=== PATIENT | male | born 1950 | race African-American/Black ===

== ENCOUNTER 2016-08-23 08:04 | Outpatient (CLI) ==
[2014-11-10 17:00] VITALS: BMI 27.2
--- NOTE | 2016-08-23 08:41 | DI ---
EXAM: Four views of the right knee. History: Right knee pain and swelling. Findings: No acute fracture or dislocation. Moderate to severe narrowing of the medial compartment and moderate narrowing of the lateral and patellofemoral compartments. There is subchondral sclero sis and osteophyte formation. Impression: No acute osseous abnormality. Moderate to severe osteoarthritis.
[2016-08-23 08:55] LABS: BASOPHILS # (AUTO) 0.1 K/uL (0-0.2); BASOPHILS % (AUTO) 0.9 % (0.0-3.0); EOSINOPHILS # (AUTO) 0.2 K/ul (0.0-0.7); EOSINOPHILS % (AUTO) 3.4 % (0.0-7.0); HEMATOCRIT 39.6 % (42.0-52.0); LYMPHOCYTES # (AUTO) 1.7 K/uL (0.60-3.4); LYMPHOCYTES % (AUTO) 29.7 (10.0-50.0); MEAN CORPUSCULAR HGB CONC 32.8 (31.8-35.4); MEAN CORPUSCULAR VOLUME 88.2 fl (80.0-94.0); MONOCYTES # (AUTO) 0.6 K/uL (0.4-2.0); MONOCYTES % (AUTO) 9.8 (0-10); NEUTROPHILS # (AUTO) 3.1 K/ul (2.0-6.9); NEUTROPHILS % (AUTO) 56.2; PLATELET COUNT 169 10^3/uL (140-440); RED BLOOD COUNT 4.49 10^6/ul (4.70-6.10); WHITE BLOOD COUNT 5.59 K/ul (4.2-10.2)
[2016-08-23 09:17] LABS: ALBUMIN 3.8 g/dL (3.4-5.0); ALBUMIN/GLOBULIN RATIO 0.97; ANION GAP 11.1; BILIRUBIN,TOTAL 0.77 mg/dL (0.00-1.20); BUN/CREATININE RATIO 11.81; CALCIUM 9.3 mg/dL (8.2-10.2); CHOL/HDL RATIO 2.3 (4.5-6.4); CREATININE 1.27 mg/dL (0.60-1.10); POTASSIUM 4.1 mmol/L (3.5-5.1); TOTAL PROTEIN 7.7 g/dL (5.8-8.1)
[2016-08-24 08:39] LABS: RHEUMATOID ARTHRITIS FACTOR 13.1 IU/mL (0.0-13.9)
[2016-08-25 09:49] LABS: C-REACTIVE PROTEIN 2.8 mg/L (0.0-4.9)
== END 2016-08-23 08:05 | disposition home or self-care (01) ==
LOC: LAB 08:04
PROVIDERS: ATTEND Family Medicine
DX: I11.9 Hypertensive heart disease without heart failure (principal); R60.0 Localized edema; M25.561 Pain in right knee; M25.461 Effusion, right knee; M06.9 Rheumatoid arthritis, unspecified; Z79.899 Other long term (current) drug therapy
CPT/HCPCS: 36415; 80053; 80061; 85025; 86140; 86430

== ENCOUNTER 2017-02-19 08:46 | Outpatient (CLI) | payer OTHER ==
[2014-11-10 17:00] VITALS: BMI 27.2
[2017-02-19 09:13] LABS: BASOPHILS % (AUTO) 0.5 % (0.0-3.0); EOSINOPHILS # (AUTO) 0.2 K/ul (0.0-0.7); EOSINOPHILS % (AUTO) 3.2 % (0.0-7.0); HEMATOCRIT 38.2 % (42.0-52.0); HEMOGLOBIN 12.7 g/dl (14.0-18.0); IMMATURE GRANULOCYTE % (AUTO) 0.3 % (0.0-5.0); LYMPHOCYTES # (AUTO) 1.4 K/uL (0.60-3.4); LYMPHOCYTES % (AUTO) 23.1 (10.0-50.0); MEAN CORPUSCULAR HEMOGLOBIN 29.3 pg (27.0-31.0); MEAN CORPUSCULAR HGB CONC 33.2 (31.8-35.4); MEAN CORPUSCULAR VOLUME 88.2 fl (80.0-94.0); MONOCYTES # (AUTO) 0.6 K/uL (0.4-2.0); MONOCYTES % (AUTO) 9.5 (0-10); NEUTROPHILS # (AUTO) 3.8 K/ul (2.0-6.9); NEUTROPHILS % (AUTO) 63.4; PLATELET COUNT 157 10^3/uL (140-440); RED BLOOD COUNT 4.33 10^6/ul (4.70-6.10); WHITE BLOOD COUNT 6.03 K/ul (4.2-10.2)
[2017-02-19 09:16] LABS: BILIRUBIN,URINE Negative (NEGATIVE); KETONES,URINE Negative (NEGATIVE); LEUKOCYTE ESTERASE ,URINE Negative (NEGATIVE); NITRITE,URINE Negative (NEGATIVE); PROTEIN,URINE Trace (NEGATIVE); URINE, BLOOD Negative (NEGATIVE)
[2017-02-19 09:17] LABS: ADD URINE MICROSCOPIC YES
[2017-02-19 09:29] LABS: ALBUMIN 3.4 g/dL (3.4-5.0); ALBUMIN/GLOBULIN RATIO 0.83; ANION GAP 12.1; BILIRUBIN,TOTAL 0.79 mg/dL (0.00-1.20); BUN/CREATININE RATIO 8.41; CALCIUM 9.6 mg/dL (8.2-10.2); CHOL/HDL RATIO 2.5 (4.5-6.4); CREATININE 1.07 mg/dL (0.60-1.10); POTASSIUM 4.1 mmol/L (3.5-5.1); TOTAL PROTEIN 7.5 g/dL (5.8-8.1)
== END 2017-02-19 08:47 | disposition home or self-care (01) ==
LOC: LAB 08:46
PROVIDERS: ATTEND Family Medicine
DX: E78.5 Hyperlipidemia, unspecified (principal); I11.9 Hypertensive heart disease without heart failure; E66.9 Obesity, unspecified; F10.21 Alcohol dependence, in remission
CPT/HCPCS: 36415; 80053; 80061; 81001; 85025

== ENCOUNTER 2018-04-18 14:06 | Outpatient (CLI) | payer OTHER ==
[2014-11-10 17:00] VITALS: BMI 27.2
== END 2018-04-18 14:18 | disposition short-term general hospital (02) ==
LOC: AMBL 14:06
PROVIDERS: ATTEND Internal Medicine Geriatric Medicine
DX: M25.551 Pain in right hip (principal); R26.2 Difficulty in walking, not elsewhere classified; R68.89 Other general symptoms and signs

== ENCOUNTER 2018-04-26 16:47 | Emergency (ER) | payer OTHER ==
[2018-04-26 16:56] VITALS: BP 121/70; TEMP 99; BMI 39.6
--- NOTE | 2018-04-26 17:35 | CT ---
EXAM: CT abdomen and pelvis without contrast HISTORY: Abdominal pain and constipation TECHNIQUE: Multi-slice transaxial helical with coronal and sagittal reformed images COMPARISON: CT abdomen/pelvis from 02/19/2013 FINDINGS: The heart is mildly enlarged. There is subendocardial fat deposition within the nova of t he left ventricle reflecting previous ischemia. No pericardial or pleural effusions are appreciated. Calcified granulomas are noted in the left lower lobe. The hepatic attenuation is normal relative to the spleen. The gallbladder contains radiodense debris but is nondilated. The pancreas and adrenal glands are normal. The spleen has normal size and atte nuation. A calculus at the interpolar region of the right kidney 6.3 mm. The kidneys are otherwise grossly normal. Ureters have normal caliber. The femoral veins, iliac veins, and inferior vena cava are distended with surrounding fat stranding. Inferior vena cava filter is in place. The aorta has normal caliber. There is fat stranding within the retroperitoneum which is most pronounced in the p nam. The intestines have normal caliber without evidence of obstruction or acute inflammation. No lymphadenopathy or ascites appreciated. The bones are free of suspicious osteolytic or osteoblastic lesions. IMPRESSION: 1. Suggestion of thrombophlebitis of the femoral veins, iliac veins, and inferior vena cava. Inferi or vena cava filter in place. 2. Nonobstructive intestinal gas pattern. 3. Retroperitoneal edema is likely related to impression #1. 4. Suggestion of cholelithiasis without dilatation.
[2018-04-26] MEDS ORDERED: MORPHINE 4 MG/ML SYRINGE IM STA (18:12)
[2018-04-26] MEDS ORDERED: ZOFRAN 4 MG/2 ML IM STA (18:13)
--- NOTE | 2018-04-26 18:16 | ED.PDOC ---
General ED Provider: Dr. AUDI ORTIZ-ER Chief Complaint: Abdominal Pain Stated Complaint: im hurting Time Seen by Physician: 16:55 Mode of Arrival: Wheelchair Information Source: Patient Exam Limitations: No limitations Nursing and Triage Documentation Reviewed and Agree: Yes Does patient meet sepsis criteria?: No System Inflammatory Response Syndrome: Not Applicable Sepsis Protocol: For patient's 13 years and over: Temp is 96.8 and below OR 101 and greater Pulse >90 BPM Resp >20/minute Acutely Altered Mental Status Are patient's symptoms suggestive of a new infection, such as: -Pneumonia -Skin, Soft Tissue -Endocarditis -UTI -Bone, Joint Infection -Implantable Device -Acute Abdominal Infection -Wound Infection -Meningitis -Blood Stream Catheter Infection -Unknown GI Complaint Exam - Abdominal Pain Complaint/Exam Onset: Gradual Duration: 1-2 days Symptoms Are: Still present Timing: Constant Initial Severity: Mild Current Severity: Moderate Location of Pain: Diffuse Character: Reports: Dull, Aching Aggravating: Reports: None Associated Signs and Symptoms: Reports: Nausea Related History: Reports: Similar episode Surgical Obstruction Risk Factors: Reports: None Abdominal Findings: Present: None Differential Diagnoses: Appendicitis, Constipation, Diverticulitis, Pancreatitis Quality Indicator For Non-Traumatic Chest Pain/Syncope: EKG Performed Review of Systems - Review Of Systems Constitutional: Reports: No symptoms Eyes: Reports: No symptoms Ears, Nose, Mouth, Throat: Reports: No symptoms Respiratory: Reports: No symptoms Cardiac: Reports: No symptoms GI: Reports: Abdominal pain, Nausea : Reports: No symptoms Musculoskeletal: Reports: No symptoms Skin: Reports: No symptoms Neurological: Reports: No symptoms Endocrine: Reports: No symptoms Hematologic/Lymphatic: Reports: No symptoms All Other Systems: Reviewed and Negative Past Medical History - Past Medical History Previously Healthy: No Endocrine: Reports: Unknown Cardiovascular: Reports: Unknown Respiratory: Reports: Unknown Hematological: Reports: Unknown Gastrointestinal: Reports: Unknown Genitourinary: Reports: Unknown Neuro/Psych: Reports: Unknown Musculoskeletal: Reports: Unknown Cancer: Reports: Unknown - Surgical History General Surgical History: Reports: Unknown - Family History Family History: Reports: Unknown - Social History Smoking Status: Never smoker Hx Substance Use: No Alcohol Screening: Heavy Physical Exam - Physical Exam Appearance: Well-appearing, No pain distress, Well-nourished Pain Distress: Moderate Eyes: GLENDA, EOMI, Conjunctiva clear ENT: Ears normal, Nose normal, Oropharynx normal Neck: Supple Respiratory: Airway patent Cardiovascular: RRR GI/: Soft Musculoskeletal: Normal strength, ROM intact, No edema, No calf tenderness Skin: Warm, Dry, Normal color Neurological: Sensation intact, Motor intact, Reflexes intact, Cranial nerves intact, Alert, Oriented Psychiatric: Affect appropriate, Mood appropriate Interpretation - Radiology Interpretation Radiology Interpretation By: Radiologist Radiology Results: Positive Exam Interpreted: CT Scan ("cholelithiasis ?thrombophlebitis veins--IFV filter in place") - EKG Interpretation Time of EKG #1: 18:17 Rate: Normal Rhythm: Sinus Ectopy: None [place]: NL ST Segment: Normal Interpretation: nsr Physician Notification - Case Discussed Physician Notified: dr reynolds Time of Notification: 19:00 Critical Care Note - Critical Care Note Total Time (mins): 0 Course - Course Hematology/Chemistry: 04/26/18 17:18 04/26/18 17:18 Orders, Labs, Meds: Lab Review 04/26/18 04/26/18 17:18 17:18 WBC 9.00 RBC 3.86 L Hgb 11.1 L Hct 34.1 L MCV 88.3 MCH 28.8 MCHC 32.6 RDW Coeff of Mamadou 14.6 Plt Count 125 L Immature Gran % (Auto) 0.2 Neut % (Auto) 74.0 Lymph % (Auto) 14.3 [place] % (Auto) 9.8 Eos % (Auto) 1.3 Baso % (Auto) 0.4 Immature Gran # (Auto) 0.0 Neut # (Auto) 6.7 Lymph # (Auto) 1.3 [place] # (Auto) 0.9 Eos # (Auto) 0.1 Baso # (Auto) 0.0 ESR 25 H Sodium 142.0 Potassium 3.90 Chloride 105.0 Carbon Dioxide 26.0 Anion Gap 14.90 BUN 26.0 H Creatinine 1.90 H Estimated GFR (MDRD) 43.00 BUN/Creatinine Ratio 13.68 Glucose 120.0 H Calcium 9.70 Total Bilirubin 3.00 H AST 51.0 ALT 37.1 Alkaline Phosphatase 74.0 Total Creatine Kinase 71.8 Troponin I < 0.010 Total Protein 8.40 H Albumin 4.30 Globulin 4.10 Albumin/Globulin Ratio 1.04 Amylase 82.3 Lipase 207.2 Orders Category Date Time Status EKG-(ED ONLY) Stat CARDIO 04/26/18 16:52 Completed AMYLASE Stat LAB 04/26/18 17:18 Completed CBC W/ AUTO DIFF Stat LAB 04/26/18 17:18 Completed COMPREHENSIVE METABOLIC PANEL Stat LAB 04/26/18 17:18 Completed CREATINE KINASE Stat LAB 04/26/18 17:18 Completed ESR Stat LAB 04/26/18 17:18 Completed LIPASE Stat LAB 04/26/18 17:18 Completed TROPONIN I Stat LAB 04/26/18 17:18 Completed Morphine Sulfate [Morphine 4 mg/ml Syringe] MEDS 04/26/18 18:12 Discontinued 4 mg IM ONCE STA Ondansetron HCl/Pf [Zofran 4 mg/2 ml] MEDS 04/26/18 18:13 Discontinued 4 mg IM ONCE STA CT ABDOMEN/PELVIS WO CONTRAST Stat RADS 04/26/18 17:05 Completed Medications Discontinued Medications Generic Name Dose Route Start Last Admin Trade Name Freq PRN Reason Stop Dose Admin Morphine Sulfate 4 mg 04/26/18 18:12 04/26/18 18:24 Morphine 4 Mg/Ml Syringe IM 04/26/18 18:13 4 mg ONCE STA Administration Ondansetron HCl 4 mg 04/26/18 18:13 04/26/18 18:24 Zofran 4 Mg/2 Ml IM 04/26/18 18:14 4 mg ONCE STA Administration mr christine walked out of the room several times during the ed visit---the ed staff stated he left the hospital ed without saying why Vital Signs: Temp Pulse Resp BP Pulse Ox 04/26/18 16:48 99.0 F 100 H 20 121/70 99 Departure - Departure Time of Disposition: 18:41 Disposition: AMA Discharge Problem: Abdominal pain Condition: Fair Pt referred to PMD for follow-up: No IPMP verified?: No Allergies/Adverse Reactions: Allergies No Known Allergies Allergy (Verified 04/28/18 12:45) Home Medications: Ambulatory Orders Ranitidine HCl [Zantac] 150 mg PO DAILY 02/19/13 Metoprolol Succinate [Toprol Xl] 50 mg PO DAILY tab.er.24h 04/29/18 Disposition Discussed With: Patient
== END 2018-04-26 18:43 | disposition left against medical advice (07) ==
LOC: ED 16:47
DX: R10.9 Unspecified abdominal pain (principal)
CPT/HCPCS: 36415; 80053; 82150; 82550; 83690; 84484; 85025; 85651; 93005; 93010; 96372; 99284

== ENCOUNTER 2018-04-28 12:42 | Inpatient (IN) | payer OTHER ==
[2018-04-28 12:45] VITALS: BMI 33.0
--- NOTE | 2018-04-28 13:44 | ED.PDOC ---
General ED Provider: Dr. AUDI JUNIOR Chief Complaint: Extremity Pain/Injury Stated Complaint: 67 y/o Afr Indian male with CC Feet and Legs Swelling. Hx previous Heart problems but unsure of CHF. Now most recently noted increased swelling Bilat Lower Extremities. [ End ] Time Seen by Physician: 13:50 Mode of Arrival: Wheelchair Information Source: Patient Exam Limitations: No limitations Nursing and Triage Documentation Reviewed and Agree: Yes Does patient meet sepsis criteria?: No System Inflammatory Response Syndrome: Not Applicable Sepsis Protocol: For patient's 13 years and over: Temp is 96.8 and below OR 101 and greater Pulse >90 BPM Resp >20/minute Acutely Altered Mental Status Are patient's symptoms suggestive of a new infection, such as: -Pneumonia -Skin, Soft Tissue -Endocarditis -UTI -Bone, Joint Infection -Implantable Device -Acute Abdominal Infection -Wound Infection -Meningitis -Blood Stream Catheter Infection -Unknown Musculoskeletal Complaint Exam - Lower Extremity Complaint/Exam Location of Pain: Reports: Right, Left, Ankle, Leg Mechanism of Injury: Reports: No known trauma Onset/Duration: progressing over several weeks, worse this morning Symptoms Are: Still present Onset of Pain: Denies: Immediate Initial Severity: Mild Current Severity: Moderate Location: Reports: Diffuse Character: Reports: Aching Alleviating: Reports: None Aggravating: Reports: None Able to Bear Weight: Yes Associated Signs and Symptoms: Reports: Swelling Related History: Reports: Similar episode DVT Risk Factors: Reports: None Septic Arthritis Risk Factors: Reports: None Related Surgical History: Reports: None Lower Extremity Findings: Present: Swelling. Absent: Erythema, Other joint pain , Foreign body Debo's Sign Present: No Differential Diagnoses: Other (Leg edema -peripheral vascular insufficiency) Review of Systems - Review Of Systems Constitutional: Reports: No symptoms Eyes: Reports: No symptoms Ears, Nose, Mouth, Throat: Reports: No symptoms Respiratory: Reports: No symptoms Cardiac: Reports: Edema GI: Reports: No symptoms : Reports: No symptoms Musculoskeletal: Reports: No symptoms Skin: Reports: No symptoms Neurological: Reports: No symptoms Endocrine: Reports: No symptoms Hematologic/Lymphatic: Reports: No symptoms All Other Systems: Reviewed and Negative Past Medical History - Past Medical History Previously Healthy: No Endocrine: Reports: Unknown Cardiovascular: Reports: Unknown Respiratory: Reports: Unknown Hematological: Reports: Unknown Gastrointestinal: Reports: Unknown Genitourinary: Reports: Unknown Neuro/Psych: Reports: Unknown Musculoskeletal: Reports: Unknown Cancer: Reports: Unknown - Surgical History General Surgical History: Reports: Unknown - Family History Family History: Reports: Unknown - Social History Smoking Status: Never smoker Hx Substance Use: No Alcohol Screening: Heavy Physical Exam - Physical Exam Appearance: Well-appearing, No pain distress, Well-nourished, Obese Ill-appearing: None Pain Distress: None Eyes: GLENDA, EOMI, Conjunctiva clear ENT: Ears normal, Nose normal, Oropharynx normal Neck: Supple Respiratory: Airway patent, Breath sounds clear, Breath sounds equal, Respirations nonlabored Cardiovascular: RRR, Pulses normal (Bilat lower extremities edema 2 +), No rub, No murmur GI/: Soft, Nontender, No masses, Bowel sounds normal, No Organomegaly Musculoskeletal: Normal strength, ROM intact, No edema, No calf tenderness Skin: Warm, Dry, Normal color Neurological: Sensation intact, Motor intact, Reflexes intact, Cranial nerves intact, Alert, Oriented Physician Notification - Case Discussed Physician Notified: Dr Samano Time of Notification: 18:00 Physician Notified: Dr Sinha Time of Notification: 18:20 (Discussed/admit patient 23 hr) Critical Care Note - Critical Care Note Total Time (mins): 60 Course - Course Hematology/Chemistry: 04/28/18 14:15 04/28/18 14:15 Orders, Labs, Meds: Lab Review 04/28/18 04/28/18 04/28/18 14:15 14:15 14:15 WBC 11.03 H RBC 3.68 L Hgb 10.8 L Hct 32.6 L MCV 88.6 MCH 29.3 MCHC 33.1 RDW Coeff of Mamadou 14.5 Plt Count 122 L Immature Gran % (Auto) 0.5 Neut % (Auto) 85.8 Lymph % (Auto) 5.2 L [place] % (Auto) 8.0 Eos % (Auto) 0.4 Baso % (Auto) 0.1 Immature Gran # (Auto) 0.1 Neut # (Auto) 9.5 H Lymph # (Auto) 0.6 [place] # (Auto) 0.9 Eos # (Auto) 0.0 Baso # (Auto) 0.0 Sodium 135.7 L Potassium 4.86 Chloride 100.9 Carbon Dioxide 27.9 Anion Gap 11.76 BUN 33.1 H Creatinine 2.90 H D Estimated GFR (MDRD) 27.00 BUN/Creatinine Ratio 11.41 Glucose 140.4 H Calcium 9.73 Total Bilirubin 3.11 H AST 42.6 ALT 32.8 Alkaline Phosphatase 95.2 Troponin I 0.057 NT-Pro-B Natriuret Pep 179.000 H Total Protein 8.69 H Albumin 4.52 Globulin 4.17 Albumin/Globulin Ratio 1.08 Lipase 146.5 Orders Category Date Time Status EKG-(ED ONLY) Stat CARDIO 04/28/18 14:05 Completed CBC W/ AUTO DIFF Stat LAB 04/28/18 14:15 Completed CMP [COMPREHENSIVE METABOLIC PANEL] Stat LAB 04/28/18 14:15 Completed LIPASE Stat LAB 04/28/18 14:15 Completed NT-PROBNP Stat LAB 04/28/18 14:15 Completed TROPONIN I Stat LAB 04/28/18 14:15 Completed UA [URINALYSIS C & S IF INDICATED] Stat LAB 04/28/18 18:16 Uncollected URINE DRUG SCREEN (RAPID FOR ED) [DRUG SCREEN, URINE, LAB 04/28/18 18:16 Uncollected RAPID] Stat CHEST, 2 VIEWS PA & LAT Stat RADS 04/28/18 14:[address] ABDOMEN/PELVIS WO CONTRAST Stat RADS 04/28/18 18:17 Completed Medications Generic Name Dose Route Start Last Admin Trade Name Freq PRN Reason Stop Dose Admin Acetaminophen 650 mg 04/28/18 19:24 Tylenol PO Q4H PRN Pain Enoxaparin Sodium 40 mg 04/29/18 09:00 Lovenox SUBCUT DAILY RADHA Sodium Chloride 1,000 mls @ 80 mls/hr 04/28/18 19:30 Sodium Chloride IV DAILY RADHA Sodium Chloride 1 syr 04/28/18 19:18 04/28/18 19:25 Saline Flush IVF 1 syr PRN PRN Administration To flush IV Discontinued Medications Generic Name Dose Route Start Last Admin Trade Name Freq PRN Reason Stop Dose Admin Enoxaparin Sodium 40 mg 04/28/18 19:17 04/28/18 19:23 Lovenox SUBCUT 04/28/18 19:18 40 mg ONCE STA Administration Vital Signs: Temp Pulse Resp BP Pulse Ox 04/28/18 12:42 97.7 F 94 H 20 146/66 H 96 Departure - Departure Time of Disposition: 19:30 Disposition: ADMITTED INPATIENT Discharge Problem: Peripheral vascular insufficiency, Prerenal renal failure, CKD (chronic kidney disease), Cholelithiasis, Leg edema Condition: Good Pt referred to PMD for follow-up: Yes (post discharge) IPMP verified?: No Allergies/Adverse Reactions: Allergies No Known Allergies Allergy (Verified 04/28/18 12:45) Home Medications: Ambulatory Orders Metoprolol Succinate [Toprol Xl] 25 mg PO BID 02/19/13 Ranitidine HCl [Zantac] 150 mg PO DAILY 02/19/13 Disposition Discussed With: Patient Cardiovascular Complaint Exam - Palpitations Complaint/Exam Symptoms Are: Still present Timing: Constant Initial Severity: Moderate Current Severity: Moderate Character: Denies: Slow, Fast Alleviating: Reports: None Associated Signs and Symptoms: Reports: Lightheadedness. Denies: Dizziness, Syncope, Chest pain, Shortness of breath, Diaphoresis, Nausea, Vomiting Cardiac Risk Factors: Reports: Hypertension Pulmonary Embolism Risk Factors: Reports: None Atrial Fibrillation Risk Factors: Reports: Hypertension Differential Diagnoses: CAD, Paroxysmal SVT, Other (sinus tach)
--- NOTE | 2018-04-28 14:41 | DI ---
EXAM: PA and lateral views of the chest HISTORY: Short of breath COMPARISON: Chest Xray from 11/10/2014 FINDINGS: Lungs are clear with no lobar consolidation, failure, large effusion or significant atelec tasis. There is old granulomatous disease. Cardiac and mediastinal silhouettes show no acute abnormal ity. No acute osseous or soft tissue abnormalities. IMPRESSION: No active disease.
--- NOTE | 2018-04-28 18:57 | CT ---
EXAM: CT of the abdomen and pelvis without contrast. HISTORY: Abdominal discomfort/elevated bilirubin. PROCEDURE: Contiguous axial CT images of the abdomen and pelvis without contrast with coronal and sa gittal reformats. FINDINGS: Comparison made with CT of 04/26/2018. The exam is limited without IV contrast. The liver is normal in appearance. There is sludge and/or gallstones in the gallbladder. The gallbladder is w ithin normal limits in size. The gallbladder wall is not well visualized by CT. The pancreas, splee n, adrenal glands and left kidney are normal in appearance. There is a 4 mm nonobstructive calcificat ion in the right kidney. The abdominal aorta is within normal limits in diameter. There is a filter i n the inferior vena cava. The bilateral common femoral veins, iliac veins and inferior vena cava dis reddy to the IVC filter are enlarged and there is stable inflammatory stranding and edema in the pelvis , suspicious for thrombophlebitis. The appendix is not visualized. The visualized loops of bowel are normal in appearance. No free fluid or free air in the abdomen or pelvis. The bladder is adequately filled with no abnormality identified. The seminal vesicles and prostate gland are unremarkable. There are degenerative changes in the spine. Impression: Gallbladder sludge and/or cholelithiasis as described. Recommend ultrasound for further evaluation if clinically indicated. Enlarged bilateral femoral veins, iliac veins and inferior vena cava as described with stable inflamm atory stranding and edema in the pelvis, suspicious for thrombophlebitis. IVC filter as described. Nonobstructive right nephrolithiasis as described.
[2018-04-28] MEDS ORDERED: LOVENOX SUBCUT STA (19:17)
[2018-04-28] MEDS ORDERED: TYLENOL PO PRN (19:24)
[2018-04-28] MEDS ORDERED: SODIUM CHLORIDE 1,000 ML IV SCH (19:30)
--- NOTE | 2018-04-28 20:55 | PCM ---
- Chief Complaint Chief Complaint: Fluid in Legs, LLQ abd pain - History of Present Illness History of Present Illness: 67 yo AAM poor historian seen today in ER for leg swelling, he feels is worse today than previously. He noteds pain in the LLQ was what brought him into ER tonight. Reviewed ER note from Dr. Kate 04/26/18. Came in for abd pain, 1655 came in by . he did not meet SIRS criteria. Abd pain gradual onset duration 1-2 days. Mild symptoms initially increased to moderate, then diffuse pain. Dullness, nausea. EKG performed in ER adn they thought appendicitis, constipation, diverticulitis, pancreatitis. ROS reviewed and abd pain/nausea. PMH listed as unknown. fam/surg/social unknown. Exam listed as negative. CT scan cholelithiasis, ?thrombophlebitus IVC filter in place. EKG NSR. WBC 9.9, Hgb 11.1, plt 125, sodium 142, K+ 3.9, cl 105Cr 1.90, glucose 120.0. ESR 25. Glucose was 120. Total bili 3.0. AST 51.Vitals 99, puls 100, rr 20, bp 121/70 , o2 99%. On toprol XL and zantac. CT reviewed thrombophlebitis of femoral veins, iliac veins and inferior vena cava. IVC filter in place, nonobs gas pattern, retroperitoneal edema likely related to phlebitis, cholelith w/o dilatation. He had no c/o RUQ pain, all of his pain was LLQ. Notes reviewed and d/c from ER without issues. Weight noted 276 Labs listed as above. Nursing note reviewed and ?constipation with no BM x 3 days. He was d/c home and returned to ER again today. He lives alone, he is a very poor historian, difficulty obtaining history. Myself and nursing x 2 attempted to obtain history and he could not provide a sequential story. Pain comes and goes , leg pain is worse, edema is worse, but weight is unchanged. He has no SOA, talks in full sentences. Uout good per his report, BM 30 minutes ago. I asked about intake. Eating less drinking more soda. NO appetite. No c/o urinary issues. He then said he has not had much liquids either as he has not felt like drinking. He is supposed to see Dr. Haddad. He has not taken any of his medications since february. He does not know why. Poor social situation, no rides, no ability to get from place to place. He has no history of Heart failure, he has no history of major CKD. Fam hx heart disease. He has never been a smoker. Intermittent constipation w/ last BM 30 minutes ago. He has no PND, no orthopnea, no SOA, no AVENDANO. No HJR. We laid him flat and he was asymptomatic for about 5 minutes. No crackles, no heart murmur. no fluid wave in abdomen. Chronic venous stasis, ashyness to bilateral LE. O2 sat 100% while lying supine w/o oxygen. BP was 119/73 Accucheck on floor was 109. He noted he did not like lying flat after telling me multiple times that he was able to lie supine without issues. He had no isssues breathing but reported it made his head feel funnty. He never dropped below 98% off O2. We sat him up to 45, repeated neck vein evaluation and no jvd obviously on exam. BP increased 125/ 76. Bp standing 118/70. He was aware of day/date/time/year. He was aware of city/state/hospital/[place]/[facility]. Aware of current president, Jarod solorzano marshal finn. We wrapped legs in declan wraps. DNR status reviewed and he is full code. He came in to ER today w/ CC of feet/leg swelling. Previous HTN told ER ?CHF but then noted no history of US of heart and no known heart failure. Bilateral LE edema, chronic PVD/Venous stasis. Aching, moderate pain, rates this at 5/10 , uncomfortable. He noted it came on immediately. We asked him on floor if he sat a lot and he said yes. No erythema, no joint pain. ROS reviewed from ER team, no other symptoms. Well appearing, no distress, no resp issues, vitals look okay. Airway open, 2+ edema bilaterally without murmur/cardiac symptoms JVD/HJR. Labs now WBC 11.03, up from 9.9, hgb 10.8 now was 11.1 2 days ago, plt 122 now down from 125. Sodium 135.7 down from 142, glucose up to 140, Creatinine up to 2.90 from 2.40. PRO BNP, 179 (normal <124). Lipase 146.5. I was called at 19:46 pm (ER note said 18:20). CT w/o contrast today showed essentially same findings as seen 2 days ago. Urine drug screen is being ordered. I had them collect a new weight as ER today showed ~40 lb weight loss compared to last OV. CT today GB sludge cholelith as described. Recommended US (CAN BE DONE OP). Bilateral femoral veins, iliac and inferior vena cava stable inflammatory stranding suspect thrombophlebitis. Calculated his ideal body weight to be somewhere between 155-165 based on 70 inches tall man. - Review of Systems Constitutional: weakness, fatigue, loss of appetite. No: fever, chills, sweats , other Eyes: No: blurred vision, double-vision, discharge, itching, pain, redness, photophobia, other Ears: No: pain, bleeding, drainage, ringing, hearing loss, other Nose: No: bleeding, congestion, discharge, other Throat: No: pain, swelling, voice change, other Mouth: No: bleeding, pain, swelling, other Respiratory: No: cough, shortness of air, wheeze, hemoptysis, pain with breathing Cardiovascular: No: chest pain, left arm pain, diaphoresis, PND, orthopnea, edema, palpitations, syncope Gastrointestinal: abdominal pain (LLQ), nausea. No: vomiting, diarrhea, melena , hematemesis, hematochezia, dysphagia, constipation Genitourinary: No: dysuria, hematuria, frequency, incontinence, flank pain, penile discharge, testicular pain, testicular swelling Neurological: dizziness (intermittent). No: headache, seizure, numbness, weakness, speech difficulty, problems with walking, tremor, fainting Musculoskeletal: pain (bilateral LE). No: swelling in joints, other Skin: No: rash, pruritus, lacerations, wounds, bruising Immunology: No: hives, itching, frequent infections, difficulty healing Hematology: No: easy bruising, easy bleeding, swollen glands Endocrine: No: weight changes, cold intolerance, heat intolerance, excessive thirst, excessive hunger, polyuria Habits: No: tobacco use, substance use, alcohol use, other - Past Medical History Past Medical History: Denies history of heart failure, No history of DM, History of HTN, obesity, PVD, never smoker. Chronic peripheral edema, Knee pain, he has had DVT numerous in past, IVC filter in place. - Past Surgical History Past Surgical History: IVC filter, knee surgery on left to replace joint. - Allergies Allergies/Adverse Reactions: Allergies Allergy/AdvReac Type Severity Reaction Status Date / Time No Known Allergies Allergy Verified 04/28/18 12:45 - Medications Medications: Medications Generic Name Dose Route Start Last Admin Trade Name Freq PRN Reason Stop Dose Admin Acetaminophen 650 mg 04/28/18 19:24 Tylenol PO Q4H PRN Pain Enoxaparin Sodium 40 mg 04/29/18 09:00 Lovenox SUBCUT DAILY RADHA Sodium Chloride 1,000 mls @ 80 mls/hr 04/28/18 19:30 Sodium Chloride IV DAILY RADHA Sodium Chloride 1 syr 04/28/18 19:18 04/28/18 19:25 Saline Flush IVF 1 syr PRN PRN Administration To flush IV - Family History Past Family History: Mother: HTN. Father: Age related. Sister x1: HTN, obesity. Brother x3: HTN, obesity, asthma in [place] brother. No children. - Social History Past Social History: Lives alone. Non smoker. Former ETOH user, stopped 5 months ago. No drug use. - Vital Signs Temperature: 97.7 F Pulse Rate: 94 Respiratory Rate: 20 Blood Pressure: 146/66 O2 Sat by Pulse Oximetry: 96 - Body Composition Height: 5 ft 10 in Weight: 230 lb Body Mass Index (BMI): 33.0 - Physical Examination HEENT: Constitutional: Appearance-No acute distress, Consistent with stated age. Orientation- Oriented x 3, alert Gait-Normal pace, wide gait, normal arm movement Rhomberg negative Build and Nutrition-[OBESE AAM] General- Patient is pleasant and cooperative with the interview and exam. Integumentary: General-No rashes, ulcers or lesions. Bilateral LE 2+ pitting edema, ashy, hypertrophic nails all toes. Legs wrapped with declan wraps at my request. Dependent edema knee down, chronic venous insufficiency likely. Palpation- He has some anterior chest tenting. Mucus membranes are mildly dry. Skin is warm to touch, appropriate. Capillary refill is normal bilateral Upper and lower extremity. Head/Neck: Head- normocephalic and atraumatic. Neck- without visible/palpable lumps or pulsations. Palpation- No bony tenderness about head/neck along frontal, occipital, temporal, parietal, mastoid, jawline, zygoma, orbit or any other location. NO temporal artery tenderness. No TMJ tenderness. Neck Supple. Thyroid-No thyromegaly, no nodules Eye: Bilaterally PERRLA, EOMI. No discharge. Upper and lower eyelids are normal. Sclera/conjunctiva normal without discharge. Cornea is normal and clear. Lens is normal. Eyeball appears normal. No ciliary flushing, no conjunctival injection. ENMT: Pinna- normal without tenderness or erythema. External auditory canal Left- normal without erythema or discharge, no excessive cerumen. External auditory canal Right-normal without erythema or discharge, no excessive cerumen. TM left- Foy/pearly, normal light reflex and anatomy TM Right- Foy/ pearly, normal light reflex and anatomy Hearing Assessment-normal to conversational speech. Nose and sinus- No sinus tenderness along frontal/ maxillary region. External appearance normal and midline. Nares- bilateral quiet airflow, no discharge. Nasal mucosa- No bleeding noted and no ulcerations observed. [place], moist. Turbinates non boggy. Lips- normal color, moist without cracks/lesions Oral Cavity/Palate- hard/soft palate intact without lesions, oral mucosa somewhat dry. Oropharynx- no pharyngeal erythema, Uvula midline. No post nasal drip. No exudate. Salivary glands- Non tender to palpation CHEST/LUNG: Inspection- symmetric chest wall no pectus deformity. Normal effort , no distress, no use of accessory muscles. Palpation- nontender sternum, ribline. No abnormal pulsations. Auscultation- Breath sounds normal throughout all lung vazquez. Normal tracheal sounds, Normal bronchial sounds overlying sternum, Bronchovessicular sounds normal between scapulae posteriorly, Normal vessicular breath sounds heard throughout periphery. Lungs are clear today. Adventitious sounds- No wheezes, rales, rhonchi. CARDIOVASCULAR: Carotid artery- normal, no bruits or abnormal pulsations. Jugular vein- no pulsations. No JVD, No HJR. Palpation/Percussion- Normal PMI , no palpable thrill Auscultation- Regular rate and rhythm. No murmur noted in sitting, supine positions. Extremities- no digital clubbing, cyanosis, + Depdendent pedal edema and edema 2+ to knees pitting, no increased warmth, no skin changes . ABDOMEN: Inspection- normal and no visible pulsations. Normal contour. Auscultation- Bowel sounds normal, no abdominal bruits. Palpation/Percussion- soft, non-tender, no rebound tenderness, no rigidity (guarding), no jar tenderness, no masses. He has no engel, no rovsing, no mcburney point tenderness. Liver- 3 fingers below costal marginSpleen no splenomegaly, Peripheral Vascular: Upper extremity Left- Normal temperature with pink nailbeds and no ulcerations. Upper extremity Right- Normal temperature with pink nailbeds and no ulcerations. Lower extremity- Normal temperature with pink nailbeds and no ulcerations. DP pulses 1+ bilaterally. Feet washed by nursing. Pedal hair reduced. Normal capillary refill. Edema- Peripheral edema w / e/o chronic venous stasis and not acute decompensated heart failure. Weight unchanged from last OV, no pulmonary, no cardiac findings. Musculoskeletal: Generalized-No generalized swelling or edema of upper extremities, edema of LE bilaterally as listed. neurovascularly intact all four extremities. Upper extremity- Symmetrical posture. No visible deformity. Normal sensation along medial and lateral upper extremity proximally and distally. NO tenderness overlying shoulder, lateral/medial epicondyle. Strip Deburrer 5/5 and strength 5/5 bilateral UE. Elbow palpated, no tenderness overlying olecranon. Normal supination, pronation to active/passive ROM and to resisted rotation. Bicep insertion/tricep insertion appear normal without obvious pathology. Rotator cuff evaluated and intact. Normal wrist ROM bilaterally. Normal hand movement, intrinsic muscles of hands normal. No tenderness to palpation of hands/wrists/ elbows. Lower extremity- Hip: Not tender to palpation, no pain, no swelling, edema or erythema of surrounding tissue, normal strength and tone. Normal appearing hip ROM bilaterally without pain. Knee: Knee ROM reduced. No tenderness overlying trochanters, no tenderness about patella, quad tendon, patellar tendon. No tenderness at tibial tuberosity. Ankle: normal ROM not tender to palpation along medial/lateral malleolus. Foot: Normal movement of toes, no tenderness bilateral feet/toes. hypertrophci nails. Spine/Ribs- No deformities, masses or tenderness, no known fractures, normal strength, Normal ROM. Normal stability No tenderness along C/T/L spine. Normal appearing ROM about spine. Uses cane to ambulate. Neurological: General- Moves all 4 extremities symmetrically. Symmetrical face and body posture. Cranial nerves- individually evaluated II-XII and intact. PERRLA, Normal EOMI, visual/special senses appear intact, Face is symmetrical and normal sensation/movement, normal tongue, normal strength/posture of neck musculature. Reflexes- intact with DTR 2+ patellar, Achilles, bicep, brachial, tricep. Ankle clonus normal with 2 beats. Strength- 5/5 bilateral UE and LE. Soft touch- intact bilateral UE and LE. Temperature sensation- intact bilateral UE and LE. Balance- Romberg intact. No orthostatics for supine to sitting to standing. Did not check at 2 minutes. He is on Tele now. Neuropsych: Oriented- Person, place, time. (AAOx3), Mood/affect- normal and congruent. Able to articulate well. Speech-Normal speech, normal rate, normal tone, normal use of language, volume and coherence. Thought content- normal with ability to perform basic computations and apply abstract thought/reason. Associations- intact, no SI/HI, no hallucinations, delusions, obsessions. Judgment/insight- QUesitonable Memory-POOR HISTORIAN. Able to recall when given a few things to remember but cannot put together story well. Knowledge- Age appropriate fund of knowledge, concentration and attention span normal. Lymphatic: Head/Neck- normal size and non tender to palpation. Axillary- normal size and non tender to palpation. Femoral and Inguinal- normal size and non tender to palpation. - Lab/Tests/Diagnostic Imaging Lab/Tests/Diagnostic Imaging: Laboratory Last Values WBC 11.03 K/ul (4.2-10.2) H 04/28/18 14:15 RBC 3.68 10^6/ul (4.70-6.10) L 04/28/18 14:15 Hgb 10.8 g/dl (14.0-18.0) L 04/28/18 14:15 Hct 32.6 % (42.0-52.0) L 04/28/18 14:15 MCV 88.6 fl (80.0-94.0) 04/28/18 14:15 MCH 29.3 pg (27.0-31.0) 04/28/18 14:15 MCHC 33.1 (31.8-35.4) 04/28/18 14:15 RDW Coeff of Mamadou 14.5 % (11.6-14.8) 04/28/18 14:15 Plt Count 122 10^3/uL (140-440) L 04/28/18 14:15 Immature Gran % (Auto) 0.5 % (0.0-5.0) 04/28/18 14:15 Neut % (Auto) 85.8 04/28/18 14:15 Lymph % (Auto) 5.2 (10.0-50.0) L 04/28/18 14:15 [place] % (Auto) 8.0 (0-10) 04/28/18 14:15 Eos % (Auto) 0.4 % (0.0-7.0) 04/28/18 14:15 Baso % (Auto) 0.1 % (0.0-3.0) 04/28/18 14:15 Immature Gran # (Auto) 0.1 (0.0-1.0) 04/28/18 14:15 Neut # (Auto) 9.5 K/ul (2.0-6.9) H 04/28/18 14:15 Lymph # (Auto) 0.6 K/uL (0.60-3.4) 04/28/18 14:15 [place] # (Auto) 0.9 K/uL (0.4-2.0) 04/28/18 14:15 Eos # (Auto) 0.0 K/ul (0.0-0.7) 04/28/18 14:15 Baso # (Auto) 0.0 K/uL (0-0.2) 04/28/18 14:15 Sodium 135.7 mmol/L (137-145) L 04/28/18 14:15 Potassium 4.86 mmol/L (3.5-5.1) 04/28/18 14:15 Chloride 100.9 mmol/L (98-107) 04/28/18 14:15 Carbon Dioxide 27.9 mmol/L (22-30.0) 04/28/18 14:15 Anion Gap 11.76 04/28/18 14:15 BUN 33.1 mg/dL (9-20) H 04/28/18 14:15 Creatinine 2.90 mg/dL (0.60-1.10) H D 04/28/18 14:15 Estimated GFR (MDRD) 27.00 mL/min 04/28/18 14:15 BUN/Creatinine Ratio 11.41 04/28/18 14:15 Glucose 140.4 mg/dL (74-106) H 04/28/18 14:15 Calcium 9.73 mg/dL (8.4-10.2) 04/28/18 14:15 Total Bilirubin 3.11 mg/dL (0.2-1.3) H 04/28/18 14:15 AST 42.6 U/L (17-59) 04/28/18 14:15 ALT 32.8 U/L (0-50) 04/28/18 14:15 Alkaline Phosphatase 95.2 U/L (56-119) 04/28/18 14:15 Troponin I 0.057 ng/ml (0.0000-0.120) 04/28/18 14:15 NT-Pro-B Natriuret Pep 179.000 pg/mL (0-124) H 04/28/18 14:15 Total Protein 8.69 g/dL (6.3-8.2) H 04/28/18 14:15 Albumin 4.52 g/dL (3.5-5.0) 04/28/18 14:15 Globulin 4.17 04/28/18 14:15 Albumin/Globulin Ratio 1.08 04/28/18 14:15 Lipase 146.5 U/L (23-300) 04/28/18 14:15 CT Abd/pelvis w/o Contrast: 04/28/18 (COMPARED TO 04/26/18): GB sludge/ cholelithiasis. US recommended (OP). enlarged bilateral femoral veins, stable stranding inflammatory process of femoral, iliac, IVC filter in place. NO bowel obs. - Assessment (1) HERNESTO (acute kidney injury) Status: Acute Code(s): N17.9 - ACUTE KIDNEY FAILURE, UNSPECIFIED SNOMED Code (s): 17498625 (2) BMI 39.0-39.9,adult Status: Chronic Code(s): Z68.39 - BODY MASS INDEX (BMI) 39.0-39.9, ADULT SNOMED Code(s): 207999150 (3) Essential (primary) hypertension Status: Chronic Code(s): I10 - ESSENTIAL (PRIMARY) HYPERTENSION SNOMED Code( s): 18897297 (4) Venous stasis Status: Chronic Code(s): I87.8 - OTHER SPECIFIED DISORDERS OF VEINS SNOMED Code(s): 19672244 (5) Mild dehydration Status: Acute Code(s): E86.0 - DEHYDRATION SNOMED Code(s): 7549286477426 (6) Presence of IVC filter Status: Chronic Code(s): Z95.828 - PRESENCE OF OTHER VASCULAR IMPLANTS AND GRAFTS SNOMED Code(s): 902461183718287, 912887653861931 (7) LLQ abdominal pain Status: Acute Code(s): R10.32 - LEFT LOWER QUADRANT PAIN SNOMED Code(s): 983390205 (8) Poor historian Status: Chronic Code(s): Z78.9 - OTHER SPECIFIED HEALTH STATUS SNOMED Code(s ): 712026386 (9) Hyponatremia Status: Acute Code(s): E87.1 - HYPO-OSMOLALITY AND HYPONATREMIA SNOMED Code( s): 84501195 (10) Hyperbilirubinemia Status: Acute Code(s): E80.6 - OTHER DISORDERS OF BILIRUBIN METABOLISM SNOMED Code(s): 60142163 - Plan Plan: HERNESTO (acute kidney injury) (Acute)/Mild dehydration (Acute): Creatinine has increased from 1.9 to 2.9. He has s/sx of dehydration more than he has e/o fluid overload. I believe the elevated BNP is likely secondary to CKD and not secondary to CHF. We will check Echo in am to confirm. He does have venous stasis, weight is unchanged over last 48 hours and I do not have other recent weight or Cr values to compare. [place] weight calculated and fluids around 110 are recommended. He has some tenting, he has some dryness to mucus membranes, negative orthostatics. I will fluid hydrate overnight. Reviewed need to elevate legs to get fluid out. Need to work on weight. He noted understanding. - Admit inpatient status - Am CMP - CBC in am - Daily weight - Echo in the am to eval for Acute CHF. - TSH in am - Bed alarm Elevated ProBNP: Suspect CKD with underlying elevation. At this time, I do not suspect that this is CHF based on his clinical picture. - Repeat labs as listed - Repeat Pro-BNP in am - Daily weight - Echo in am. - Hyperthyroid can induce elevated natriuretic peptide Essential (primary) hypertension (Acute): Suspect essential HTN w/ underlying dehydration. Good BP control is encouraged with Goal BP based on JNC 8 guidelines: For those >60 150/90. For patients of all ages with Diabetes, CKD , Known CAD the goal is <140/90. Reviewed medications and discussed the typical first line agents to include thiazide diuretic or declan-I or ARB or CCB alone or in combo. - Monitor vitals, monitor labs in am. Elevated Bilirubin: - Am total/direct bili BMI 39.0-39.9,adult (Chronic): Discussed the federal guidelines suggest a healthy goal BMI of 18.5-24.9 for people 18-65 and 23-30 for people age 65 and older. Overweight is considered BMI 25-30, Obesity 30-40 and Morbid obesity is defined as >100 lb overweight or BMI >40. With a BMI above goal, it is recommended to utilize a diet/exercise program to get back into the appropriate range. Consider referral to bar back. For BMI >40 consider referral to bariatrics. If not already monitoring intake. I would recommend at least to keep a food diary. Document everything that is consumed into a food diary. Studies have shown that patients can lose up to 2x the weight by keeping track of foods. Offered handout on weight loss techniques. Apps that may be of benefit include [employer], Lose it. Regular exercise encouraged. LLQ abdominal pain (Acute): Acte on chronic. BM this evening. He has ? phlebitis. I will put him on lovenox. Has IVC filter. No acute findings on exam. Venous stasis (Acute/Chronic): Legs are now wrapped with Declan wrap from toes to knees, he was happy with this. Daily weight. Poor historian (Acute): Very difficult to get information from the patient. Presence of IVC filter (Chronic) hyponatremia: Fluid hydration, repeat CMP in am. Asymptomatic. - CMP in am. DVT Prophy: I reviewed his CrCl and he ranges from 33-44ml/min depending on the source. I had initially thought about dropping the dose from Lovenox 40 to lovenox 30 but I decided to keep the dose at 40mg. Diet: 2G salt (May increase as mildly hyponatremic). Activity: UP with assist. Dispo: Reviewed last 2 Er visits. Poor historian, pieced this history together with the dual Er visits in last 48 hours. Goal for now is to recheck BNP in am, CBC/CMP/TSH, echo. I will hydrate at 110ml/min (maintenance) as he is drinking some too. I believe his BNP is likely always elevated. He has apparent CKD with last Cr 2 days ago at 1.9 and now at 2.9. This is the major reason for admit. >70 minutes spent in coordination of care/admit not related to documentation time. Expected length of stay 1-2 days based on acute kidney failure.
--- NOTE | 2018-04-29 08:03 | PCM.PROG ---
Subjective: 67 yo [facility] Hospital Day 2 admitted for HERNESTO, w/ mildly elevated ProBNP, anemia. This am he notes he feels fine, feels about the same. He was happy with leg wraps and he feels that problem/complaint is better. He has no SOA, no PND, no orthopnea, no chest pain. I have talked with am nurse and he did fine over night. NO reported urine output beyond 200 for the night bladder scan of 185 which is borderline. Weight today 274, weights in chart are not right as 230 lb was entered multiple times. He is 274 today, which we will use as base. There is a weight of 270, but uncertain if that is accurate. TSH returned 0.798 , Creatinine has worsened from 2.9 to 3.14. CO2 is fine, BUN is elevated at 42.5. Urinalysis showed +Nit, I have sent urine for culture. He looks clinically better. I talked with cardiology this am and he will get echo. It was recommended to get ABG I have ordered that. I have also increased fluid to 125ml/hr for the next 6-12 hours. If LVEF okay, if contracility okay, I will continue to monitor and watch as the creatinine comes back down. He denies NSAIDS. BNP ordered for repeat this am has not yet returned. Hyperbilirubinemia I have ordered total/direct this am, not yet back. Awaiting Echo. Rounded on patient 07:15 this am. Reviewed Tele, SR to ST w/ PVC noted. Nursing notes reviewed. He looks clinically better but labs are worse. Legs wrapped. Weight cannot be trusted at this point. Discussed with nurses daily weight. I have asked for strict I+O. I have reviewed vitals, telemetry, talked with care managers, talked with team. I contacted and talked with Dr. Lopez Cardiology as well regarding echo. Objective: Vital Signs - 24 hr 04/28/18 04/28/18 04/28/18 12:42 19:07 23:52 Temperature 97.7 F 97.4 F L 97.7 F Pulse Rate 94 H 116 H 94 H Respiratory 20 18 20 Rate Blood Pressure 146/66 H 146/66 H O2 Sat by Pulse 96 100 96 Oximetry 04/29/18 04/29/18 02:00 06:00 Temperature 99.4 F 98.8 F Pulse Rate 108 H 99 H Respiratory 20 18 Rate Blood Pressure 119/71 135/77 O2 Sat by Pulse 100 100 Oximetry Constitutional: Appearance-Still w/o acute distress, Consistent with stated age. Orientation- Oriented x 3, alert Build and Nutrition-[OBESE AAM] General- Patient is pleasant and cooperative with the interview and exam. Integumentary: General-No rashes, ulcers or lesions. Palpation- Tenting seen initially has resolved. Mucus membranes moist. Skin is warm to touch, appropriate. Capillary refill is normal bilateral Upper and lower extremity. Head/Neck: Head- normocephalic and atraumatic. Neck- without visible/palpable lumps or pulsations. Palpation- No bony tenderness about head/neck along frontal, occipital, temporal, parietal, mastoid, jawline, zygoma, orbit or any other location. NO temporal artery tenderness. No TMJ tenderness. Neck Supple. Thyroid-No thyromegaly, no nodules Eye: Bilaterally PERRLA, EOMI. No discharge. Upper and lower eyelids are normal. Sclera/conjunctiva normal without discharge. Cornea is normal and clear. Lens is normal. Eyeball appears normal. No ciliary flushing, no conjunctival injection. ENMT: Nasal mucosa- No bleeding noted and no ulcerations observed. [place], moist. Turbinates non boggy. Lips- normal color, moist without cracks/lesions Oral Cavity/Palate- hard/soft palate intact without lesions, oral mucosa moist. Oropharynx- no pharyngeal erythema, Uvula midline. No post nasal drip. No exudate. Salivary glands- Non tender to palpation CHEST/LUNG: Inspection- symmetric chest wall no pectus deformity. Normal effort , no distress, no use of accessory muscles. Palpation- nontender sternum, ribline. No abnormal pulsations. Auscultation- Breath sounds normal throughout all lung vazquez. Normal tracheal sounds, Normal bronchial sounds overlying sternum, Bronchovessicular sounds normal between scapulae posteriorly, Normal vessicular breath sounds heard throughout periphery. Lungs are clear today. Adventitious sounds- No wheezes, rales, rhonchi. CARDIOVASCULAR: Jugular vein- no pulsations. No JVD, No HJR. Palpation/ Percussion- Normal PMI, no palpable thrill. Auscultation- Regular rate and rhythm. No murmur noted in sitting, supine positions. Extremities- no digital clubbing, cyanosis, + Dependent pedal edema and edema 2+ to knees pitting, no increased warmth, no skin changes . ABDOMEN: Inspection- normal and no visible pulsations. Normal contour. Auscultation- Bowel sounds normal, no abdominal bruits. Palpation/Percussion- soft, non-tender, no rebound tenderness, no rigidity (guarding), no jar tenderness, no masses. He still has no engel, no rovsing, no mcburney point tenderness. He has no tenderness LLQ but reports pain Liver- 3 fingers below costal marginSpleen no splenomegaly, Peripheral Vascular: Upper extremity Left- Normal temperature with pink nailbeds and no ulcerations. Upper extremity Right- Normal temperature with pink nailbeds and no ulcerations. Lower extremity- Normal temperature with pink nailbeds and no ulcerations. DP pulses 1+ bilaterally. Pedal hair reduced. Normal capillary refill. Edema- Peripheral edema w/ e/o chronic venous stasis and still w/o e/o acute decompensated heart failure. Weights are unreliable unchanged from last OV, no pulmonary, no cardiac findings. Musculoskeletal: Generalized-No generalized swelling or edema of upper extremities, edema of LE bilaterally as listed. neurovascularly intact all four extremities. Moves all 4 but seems to live a sedentary lifestyle. Neurological: General- Moves all 4 extremities symmetrically. Symmetrical face and body posture. Cranial nerves- individually evaluated II-XII and intact. PERRLA, Normal EOMI, visual/special senses appear intact, Face is symmetrical and normal sensation/movement, normal tongue, normal strength/posture of neck musculature. Strength- 5/5 bilateral UE and LE. Soft touch- intact bilateral UE and LE. Neuropsych: Oriented- Person, place, time. (AAOx3), Mood/affect- normal and congruent. Able to articulate well. Speech-Normal speech, normal rate, normal tone, normal use of language, volume and coherence. Thought content- normal with ability to perform basic computations and apply abstract thought/reason. Associations- intact, no SI/HI, no hallucinations, delusions, obsessions. Judgment/insight- Quesitonable Memory- Difficult to get information from patient , poor historian. Knowledge- Limited Lymphatic: Head/Neck- normal size and non tender to palpation. Femoral and Inguinal- normal size and non tender to palpation. Laboratory Last Values WBC 10.02 K/ul (4.2-10.2) 04/29/18 04:10 RBC 3.31 10^6/ul (4.70-6.10) L 04/29/18 04:10 Hgb 9.5 g/dl (14.0-18.0) L 04/29/18 04:10 Hct 29.0 % (42.0-52.0) L 04/29/18 04:10 MCV 87.6 fl (80.0-94.0) 04/29/18 04:10 MCH 28.7 pg (27.0-31.0) 04/29/18 04:10 MCHC 32.8 (31.8-35.4) 04/29/18 04:10 RDW Coeff of Mamadou 14.6 % (11.6-14.8) 04/29/18 04:10 Plt Count 121 10^3/uL (140-440) L 04/29/18 04:10 Immature Gran % (Auto) 0.3 % (0.0-5.0) 04/29/18 04:10 Neut % (Auto) 80.1 04/29/18 04:10 Lymph % (Auto) 9.7 (10.0-50.0) L 04/29/18 04:10 Wilson % (Auto) 9.4 (0-10) 04/29/18 04:10 Eos % (Auto) 0.3 % (0.0-7.0) 04/29/18 04:10 Baso % (Auto) 0.2 % (0.0-3.0) 04/29/18 04:10 Immature Gran # (Auto) 0.0 (0.0-1.0) 04/29/18 04:10 Neut # (Auto) 8.0 K/ul (2.0-6.9) H 04/29/18 04:10 Lymph # (Auto) 1.0 K/uL (0.60-3.4) 04/29/18 04:10 Wilson # (Auto) 0.9 K/uL (0.4-2.0) 04/29/18 04:10 Eos # (Auto) 0.0 K/ul (0.0-0.7) 04/29/18 04:10 Baso # (Auto) 0.0 K/uL (0-0.2) 04/29/18 04:10 Sodium 134.6 mmol/L (137-145) L 04/29/18 04:10 Potassium 4.90 mmol/L (3.5-5.1) 04/29/18 04:10 Chloride 102.4 mmol/L (98-107) 04/29/18 04:10 Carbon Dioxide 26.4 mmol/L (22-30.0) 04/29/18 04:10 Anion Gap 10.70 04/29/18 04:10 BUN 42.5 mg/dL (9-20) H 04/29/18 04:10 Creatinine 3.14 mg/dL (0.60-1.10) H 04/29/18 04:10 Estimated GFR (MDRD) 24.00 mL/min 04/29/18 04:10 BUN/Creatinine Ratio 13.53 04/29/18 04:10 Glucose 117.7 mg/dL (74-106) H 04/29/18 04:10 Calcium 8.92 mg/dL (8.4-10.2) 04/29/18 04:10 Total Bilirubin 2.92 mg/dL (0.2-1.3) H 04/29/18 04:10 Direct Bilirubin 0.00 mg/dL (0.00-0.30) 04/29/18 04:10 AST 37.6 U/L (17-59) 04/29/18 04:10 ALT 28.2 U/L (0-50) 04/29/18 04:10 Alkaline Phosphatase 85.6 U/L (56-119) 04/29/18 04:10 Troponin I 0.057 ng/ml (0.0000-0.120) 04/28/18 14:15 NT-Pro-B Natriuret Pep 179.000 pg/mL (0-124) H 04/28/18 14:15 Total Protein 7.72 g/dL (6.3-8.2) 04/29/18 04:10 Albumin 3.95 g/dL (3.5-5.0) 04/29/18 04:10 Globulin 3.77 04/29/18 04:10 Albumin/Globulin Ratio 1.04 04/29/18 04:10 Lipase 146.5 U/L (23-300) 04/28/18 14:15 TSH 0.798 uIU/L (0.465-4.68) 04/29/18 04:10 Urine Color Dark (YELLOW) 04/29/18 00:15 Urine Clarity Slightly (CLEAR) 04/29/18 00:15 Urine pH 5.0 (5-9) 04/29/18 00:15 Ur Specific Jackson 1.025 (1.005-1.030) 04/29/18 00:15 Urine Protein 2+ (NEGATIVE) 04/29/18 00:15 Urine Glucose (UA) Negative (NEGATIVE) 04/29/18 00:15 Urine Ketones Trace (NEGATIVE) 04/29/18 00:15 Urine Blood Negative (NEGATIVE) 04/29/18 00:15 Urine Nitrite Positive (NEGATIVE) 04/29/18 00:15 Urine Bilirubin 3+ (NEGATIVE) 04/29/18 00:15 Urine Urobilinogen 1.0 (0.2) 04/29/18 00:15 Ur Leukocyte Esterase Negative (NEGATIVE) 04/29/18 00:15 Ur Squamous Epith Cells 0-2 (0-5) 04/29/18 00:15 Amorphous Sediment 1+ (NOT PRESENT) 04/29/18 00:15 Urine Bacteria Trace (NOT PRESENT) 04/29/18 00:15 Hyaline Casts 0-2 (NOT PRESENT) 04/29/18 00:15 Fine Granular Casts 0-2 (NOT PRESENT) 04/29/18 00:15 Urine Opiates Screen Positive (NEGATIVE) 04/29/18 00:15 Ur Oxycodone Screen Negative (NEGATIVE) 04/29/18 00:15 Urine Methadone Screen Negative (NEGATIVE) 04/29/18 00:15 Ur Propoxyphene Screen Negative (NEGATIVE) 04/29/18 00:15 Ur Barbiturates Screen Negative (NEGATIVE) 04/29/18 00:15 U Tricyclic Antidepress Negative (NEGATIVE) 04/29/18 00:15 Ur Phencyclidine Scrn Negative (NEGATIVE) 04/29/18 00:15 Ur Amphetamine Screen Negative (NEGATIVE) 04/29/18 00:15 U Methamphetamines Scrn Negative (NEGATIVE) 04/29/18 00:15 U Benzodiazepines Scrn Negative (NEGATIVE) 04/29/18 00:15 Urine Cocaine Screen Negative (NEGATIVE) 04/29/18 00:15 U Cannabinoids Screen Negative (NEGATIVE) 04/29/18 00:15 BUN/CR Trends 04/28/18 04/29/18 Range/Units 14:15 04:10 BUN 33.1 H 42.5 H (9-20) mg/dL Creatinine 2.90 H D 3.14 H (0.60-1.10) mg/dL (1) HERNESTO (acute kidney injury) Status: Inactive Code(s): N17.9 - ACUTE KIDNEY FAILURE, UNSPECIFIED SNOMED Code(s): 55214239 (2) BMI 39.0-39.9,adult Status: Inactive Code(s): Z68.39 - BODY MASS INDEX (BMI) 39.0-39.9, ADULT SNOMED Code(s): 770365330 (3) Essential (primary) hypertension Status: Inactive Code(s): I10 - ESSENTIAL (PRIMARY) HYPERTENSION SNOMED Code (s): 81119743 (4) Venous stasis Status: Inactive Code(s): I87.8 - OTHER SPECIFIED DISORDERS OF VEINS SNOMED Code(s): 67591936 (5) Mild dehydration Status: Inactive Code(s): E86.0 - DEHYDRATION SNOMED Code(s): 2872509794073 (6) Presence of IVC filter Status: Inactive Code(s): Z95.828 - PRESENCE OF OTHER VASCULAR IMPLANTS AND GRAFTS SNOMED Code(s): 907978618475170 (7) LLQ abdominal pain Status: Inactive Code(s): R10.32 - LEFT LOWER QUADRANT PAIN SNOMED Code(s): 648230110 (8) Poor historian Status: Inactive Code(s): Z78.9 - OTHER SPECIFIED HEALTH STATUS SNOMED Code( s): 137159902 (9) Hyponatremia Status: Inactive Code(s): E87.1 - HYPO-OSMOLALITY AND HYPONATREMIA SNOMED Code(s): 16707298 (10) Hyperbilirubinemia Status: Inactive Code(s): E80.6 - OTHER DISORDERS OF BILIRUBIN METABOLISM SNOMED Code(s): 49602733 Plan: HERNESTO (acute kidney injury) (Acute)/Mild dehydration (Acute): Creatinine has increased further from 1.9 to 2.9 to 3.14. BUN elevated. CO2 on his CMP looks okay. Urine showed +NIT. PVR 185 and <200 but still more than I like to see. We will get echo this am, make sure contractility okay, get ABG this am and repeat CMP this afternoon. I want to watch the creatinine. Bilirubin labs pending. He has improved regarding his e/o dehydration. I have increased fluids to 125ml/hour. I still believe the elevated BNP is likely secondary to CKD and not secondary to CHF. No crackles, no fluid overload, no JVD, no heart murmur. Await Echo this am to confirm. He does have venous stasis, weight is unchanged over last 48 hours and I do not have other recent weight or Cr values to compare. Not tenting today, Clinically looks better but creatinine is not. This may come down on next assessment this afternoon at 1300. Reviewed need to elevate legs to get fluid out. Need to work on weight. He noted understanding. - Admit inpatient status - 1300CMP, repeat am tomorrow - CBC in am - Daily weight - Bed alarm Elevated ProBNP: Suspect CKD with underlying elevation. Repeated BNP this am pending as of 8:15. TSH was 0.798 and okay. - Repeat Pro-BNP this am - Daily weight - Echo in am (Went to dept at 08:00). Essential (primary) hypertension (Acute): Bp stable, continue to monitor. Elevated Bilirubin: Pending as of 8:15, will f/u with lab when available. - Am total/direct bili BMI 39.0-39.9,adult (Chronic): Chronic/unchanged from admit. Weight unreliable. LLQ abdominal pain (Acute): Acte on chronic. BM this evening. He has ? phlebitis. I will put him on lovenox. Has IVC filter. No acute findings on exam. Unchanged. Still w/o pain on exam. Venous stasis (Acute/Chronic): Legs are now wrapped with Declan wrap from toes to knees, he was happy with this. Daily weight. Poor historian (Acute): Very difficult to get information from the patient. Presence of IVC filter (Chronic) hyponatremia: Fluid hydration, repeat CMP in am. Asymptomatic. Mildly worse from yesterday, but still >130. Monitor. - CMP againt his pm - CMP tomorrow in am. DVT Prophy: I reviewed his CrCl and he ranges from 33-44ml/min depending on the source. I had initially thought about dropping the dose from Lovenox 40 to lovenox 30 but I decided to keep the dose at 40mg. Diet: 2G salt (May increase as mildly hyponatremic). Activity: UP with assist. Dispo: >35 minutes rounding on patient today. I+O reviewed and like weights I do not know if he had uout. I have asked for strict I+O, He has not had any BM but did 30 min before my eval last night. He is fine, poor historian. Close monitoring of renal system. Vitals are stable.. Addendum: 15:24 Checked on patient again after his echo. EF was 45-50%. Enlarged atrial cavity., ABG completed and PCO2 33.9. Fluids increased to 125ml/ hr. Creatinine at 1300 worsening and he has now not produced urine in 12 hours. Bladder scan >200, US renals shows mild bladder wall thickening. He has no complaints, still afebrile, no SOA, no symptoms other than anuria. Creatinine has now increased from 2.9 last night to 3.21 with GFR of 24. Nurses called me at 1445 and stated he has not urinated. Bladder scan >200 as above, we will cath. I noted +nit on his urine, I have ordered a culture, I have ordered urine sodium, urine osmol but cannot get this due to the anuria for past 12 hours. Vitals remain stable. He is having some constipation. NO back pain, no e/o spinal invovlement. MOM given, we will cath and see if fluid comes out, we will also work on stooling and consider monitoring for another few hours for urine output and if none consider transfer to facility with nephrology. History of ETOH, I will check ammonia, I will check PT/INR. Normal AST/ALT, normal alk phos. He did not report jaundice in times of distress but his unconjugated bili is <4 and his AST/ALT are normal. BUN/CR Trends 04/28/18 04/29/18 04/29/18 Range/Units 14:15 04:10 11:13 BUN 33.1 H 42.5 H 42.4 H (9-20) mg/dL Creatinine 2.90 H D 3.14 H 3.21 H (0.60-1.10) mg/dL ABG: normal except PCO2 33.9. Bilribubin is trending down. Direct was 0 suggesting everything is indirect and likely Gilbert as normal AST/ALT/alk phos. He has no jaundice.
[2018-04-29] MEDS ORDERED: ZANTAC PO SCH (09:00)
[2018-04-29] MEDS ORDERED: SODIUM CHLORIDE 1,000 ML IV SCH ×4 (09:00→22:23)
[2018-04-29] MEDS ORDERED: LOVENOX SUBCUT SCH ×3 (09:00→19:17)
[2018-04-29] MEDS ORDERED: TOPROL XL PO SCH (09:00)
[2018-04-29] MEDS: SODIUM CHLORIDE 1,000 ML IV SCH ×2 (12:59→17:13)
[2018-04-29] MEDS ORDERED: MILK OF MAGNESIA PO PRN (14:11)
[2018-04-29] MEDS ORDERED: GLYCERIN SUPPOSITORY RC PRN (14:12)
--- NOTE | 2018-04-29 14:48 | US ---
EXAM: Renal ultrasound. History: Unable to urinate Comparison: CT abdomen pelvis 04/28/2018 Technique: Multiple sonographic images through the kidneys were obtained. Color duplex Doppler was used to interrogate vascular flow. Findings: Neither ureteral jet was seen in the bladder. Mild diffuse bladder wall thickening. The right kidney measures 10.6 cm in long length demonstrating normal cortical echogenicity without e vidence for hydronephrosis, mass or shadowing calculus. The left kidney was partially obscured due to bowel gas but demonstrates no evidence for hydronephros is or obvious mass. Impression: 1. Mild diffuse bladder wall thickening. 2. Limited evaluation of the left kidney. No definite abnormalities are seen.
[2018-04-29] MEDS ORDERED: SODIUM CHLORIDE 500 ML IV STA (17:11)
[2018-04-29] MEDS ORDERED: SODIUM CHLORIDE 250 ML IV ONE (17:15)
[2018-04-29] MEDS ORDERED: TOPROL XL PO STA (19:52)
[2018-04-29] MEDS ORDERED: TOPROL XL ONE (19:53)
--- NOTE | 2018-04-29 20:28 | PCM.DC ---
Final Diagnosis: (1) HERNESTO (acute kidney injury) Status: Acute Code(s): N17.9 - ACUTE KIDNEY FAILURE, UNSPECIFIED SNOMED Code (s): 16355276 (2) BMI 39.0-39.9,adult Status: Chronic Code(s): Z68.39 - BODY MASS INDEX (BMI) 39.0-39.9, ADULT SNOMED Code(s): 792336648 (3) Essential (primary) hypertension Status: Chronic Code(s): I10 - ESSENTIAL (PRIMARY) HYPERTENSION SNOMED Code( s): 26701270 (4) Venous stasis Status: Chronic Code(s): I87.8 - OTHER SPECIFIED DISORDERS OF VEINS SNOMED Code(s): 34008578 (5) Mild dehydration Status: Acute Code(s): E86.0 - DEHYDRATION SNOMED Code(s): 4359558602005 (6) Presence of IVC filter Status: Chronic Code(s): Z95.828 - PRESENCE OF OTHER VASCULAR IMPLANTS AND GRAFTS SNOMED Code(s): 362230191161514, 439757887602402 (7) LLQ abdominal pain Status: Acute Code(s): R10.32 - LEFT LOWER QUADRANT PAIN SNOMED Code(s): 912100877 (8) Poor historian Status: Chronic Code(s): Z78.9 - OTHER SPECIFIED HEALTH STATUS SNOMED Code(s ): 477352943 (9) Hyponatremia Status: Acute Code(s): E87.1 - HYPO-OSMOLALITY AND HYPONATREMIA SNOMED Code( s): 41135513 (10) Hyperbilirubinemia Status: Acute Code(s): E80.6 - OTHER DISORDERS OF BILIRUBIN METABOLISM SNOMED Code(s): 57533851 Reason for Hospitalization: CC was leg pain/edema. This was chronic, he was noted to have HERNESTO and admitted for HERNESTO/CKD. Prognosis at Discharge: 1. Transfer to [facility]. Condition at Discharge: Stable, he is asymptomatic, decreased renal function. HERNESTO. Medications at Discharge: Ambulatory Orders Medication Instructions Recorded Ranitidine HCl [Zantac] 150 mg PO DAILY 02/19/13 Metoprolol Succinate [Toprol Xl] 50 mg PO DAILY tab.er.24h 04/29/18 Lovenox 30 daily given 21:12. Lab/Diagnostics: Laboratory Last Values WBC 10.02 K/ul (4.2-10.2) 04/29/18 04:10 RBC 3.31 10^6/ul (4.70-6.10) L 04/29/18 04:10 Hgb 9.5 g/dl (14.0-18.0) L 04/29/18 04:10 Hct 29.0 % (42.0-52.0) L 04/29/18 04:10 MCV 87.6 fl (80.0-94.0) 04/29/18 04:10 MCH 28.7 pg (27.0-31.0) 04/29/18 04:10 MCHC 32.8 (31.8-35.4) 04/29/18 04:10 RDW Coeff of Mamadou 14.6 % (11.6-14.8) 04/29/18 04:10 Plt Count 121 10^3/uL (140-440) L 04/29/18 04:10 Immature Gran % (Auto) 0.3 % (0.0-5.0) 04/29/18 04:10 Neut % (Auto) 80.1 04/29/18 04:10 Lymph % (Auto) 9.7 (10.0-50.0) L 04/29/18 04:10 Wy[place] % (Auto) 9.4 (0-10) 04/29/18 04:10 Eos % (Auto) 0.3 % (0.0-7.0) 04/29/18 04:10 Baso % (Auto) 0.2 % (0.0-3.0) 04/29/18 04:10 Immature Gran # (Auto) 0.0 (0.0-1.0) 04/29/18 04:10 Neut # (Auto) 8.0 K/ul (2.0-6.9) H 04/29/18 04:10 Lymph # (Auto) 1.0 K/uL (0.60-3.4) 04/29/18 04:10 [place] # (Auto) 0.9 K/uL (0.4-2.0) 04/29/18 04:10 Eos # (Auto) 0.0 K/ul (0.0-0.7) 04/29/18 04:10 Baso # (Auto) 0.0 K/uL (0-0.2) 04/29/18 04:10 PT 11.0 SEC (9.3-11.0) 04/29/18 15:45 INR 1.10 SI (0.0-3.9) 04/29/18 15:45 Puncture Site R rad 04/29/18 07:59 O2 Saturation 98.0 % (95-100) 04/29/18 07:59 ABG pH 7.450 (7.35-7.45) 04/29/18 07:59 ABG pCO2 33.9 mmHg (35-45) L 04/29/18 07:59 ABG pO2 95.0 mmHg (85-100) 04/29/18 07:59 ABG HCO3 23.6 (22.0-26.0) 04/29/18 07:59 ABG Total CO2 25 (22.0-28.0) 04/29/18 07:59 ABG Base Excess 0 (-2.0-2.0) 04/29/18 07:59 Irwin Test + 04/29/18 07:59 FiO2 % 21.0 % 04/29/18 07:59 Sodium 134.9 mmol/L (137-145) L 04/29/18 11:13 Potassium 4.59 mmol/L (3.5-5.1) 04/29/18 11:13 Chloride 101.2 mmol/L (98-107) 04/29/18 11:13 Carbon Dioxide 26.9 mmol/L (22-30.0) 04/29/18 11:13 Anion Gap 11.39 04/29/18 11:13 BUN 42.4 mg/dL (9-20) H 04/29/18 11:13 Creatinine 3.21 mg/dL (0.60-1.10) H 04/29/18 11:13 Estimated GFR (MDRD) 24.00 mL/min 04/29/18 11:13 BUN/Creatinine Ratio 13.20 04/29/18 11:13 Glucose 122.4 mg/dL (74-106) H 04/29/18 11:13 Calcium 8.98 mg/dL (8.4-10.2) 04/29/18 11:13 Total Bilirubin 2.88 mg/dL (0.2-1.3) H 04/29/18 11:13 Direct Bilirubin 0.00 mg/dL (0.00-0.30) 04/29/18 04:10 AST 45.3 U/L (17-59) 04/29/18 11:13 ALT 28.8 U/L (0-50) 04/29/18 11:13 Alkaline Phosphatase 87.1 U/L (56-119) 04/29/18 11:13 Ammonia < 8.7 umol/L (9-30) L 04/29/18 15:45 Total Creatine Kinase 185.2 U/L (55-170) H 04/29/18 20:00 CK-MB (CK-2) 3.380 ng/ml (0.0-2.38) H 04/29/18 20:00 CK-MB (CK-2) % 1.8200 04/29/18 20:00 Troponin I 0.057 ng/ml (0.0000-0.120) 04/28/18 14:15 NT-Pro-B Natriuret Pep 183.000 pg/mL (0-124) H 04/29/18 15:45 Total Protein 7.81 g/dL (6.3-8.2) 04/29/18 11:13 Albumin 4.09 g/dL (3.5-5.0) 04/29/18 11:13 Globulin 3.72 04/29/18 11:13 Albumin/Globulin Ratio 1.09 04/29/18 11:13 Lipase 146.5 U/L (23-300) 04/28/18 14:15 TSH 0.798 uIU/L (0.465-4.68) 04/29/18 04:10 Urine Color Dark (YELLOW) 04/29/18 00:15 Urine Clarity Slightly (CLEAR) 04/29/18 00:15 Urine pH 5.0 (5-9) 04/29/18 00:15 Ur Specific [place] 1.025 (1.005-1.030) 04/29/18 00:15 Urine Protein 2+ (NEGATIVE) 04/29/18 00:15 Urine Glucose (UA) Negative (NEGATIVE) 04/29/18 00:15 Urine Ketones Trace (NEGATIVE) 04/29/18 00:15 Urine Blood Negative (NEGATIVE) 04/29/18 00:15 Urine Nitrite Positive (NEGATIVE) 04/29/18 00:15 Urine Bilirubin 3+ (NEGATIVE) 04/29/18 00:15 Urine Urobilinogen 1.0 (0.2) 04/29/18 00:15 Ur Leukocyte Esterase Negative (NEGATIVE) 04/29/18 00:15 Ur Squamous Epith Cells 0-2 (0-5) 04/29/18 00:15 Amorphous Sediment 1+ (NOT PRESENT) 04/29/18 00:15 Urine Bacteria Trace (NOT PRESENT) 04/29/18 00:15 Hyaline Casts 0-2 (NOT PRESENT) 04/29/18 00:15 Fine Granular Casts 0-2 (NOT PRESENT) 04/29/18 00:15 Urine Opiates Screen Positive (NEGATIVE) 04/29/18 00:15 Ur Oxycodone Screen Negative (NEGATIVE) 04/29/18 00:15 Urine Methadone Screen Negative (NEGATIVE) 04/29/18 00:15 Ur Propoxyphene Screen Negative (NEGATIVE) 04/29/18 00:15 Ur Barbiturates Screen Negative (NEGATIVE) 04/29/18 00:15 U Tricyclic Antidepress Negative (NEGATIVE) 04/29/18 00:15 Ur Phencyclidine Scrn Negative (NEGATIVE) 04/29/18 00:15 Ur Amphetamine Screen Negative (NEGATIVE) 04/29/18 00:15 U Methamphetamines Scrn Negative (NEGATIVE) 04/29/18 00:15 U Benzodiazepines Scrn Negative (NEGATIVE) 04/29/18 00:15 Urine Cocaine Screen Negative (NEGATIVE) 04/29/18 00:15 U Cannabinoids Screen Negative (NEGATIVE) 04/29/18 00:15 H/H Trends 04/28/18 04/29/18 Range/Units 14:15 04:10 Hgb 10.8 L 9.5 L (14.0-18.0) g/dl Hct 32.6 L 29.0 L (42.0-52.0) % BUN/CR Trends 04/28/18 04/29/18 04/29/18 Range/Units 14:15 04:10 11:13 BUN 33.1 H 42.5 H 42.4 H (9-20) mg/dL Creatinine 2.90 H D 3.14 H 3.21 H (0.60-1.10) mg/dL CT Abd/pelvis w/o Contrast: 04/28/18 (COMPARED TO 04/26/18): GB sludge/ cholelithiasis. US recommended (OP). enlarged bilateral femoral veins, stable stranding inflammatory process of femoral, iliac, IVC filter in place. NO bowel obs. CXR: No active disease Renal US: no hydronephrosis, bladder wall thickening, mild/diffuse. Echo: 04/29/18 EF 45-50%. Enlarged atrial cavity. ABG completed and PCO2 33.9. Follow-ups: Transfer to [facility] In [place] floor [address]. Hernandez. Disposition: TSF OTHER Hospital Course: 67 yo RENU bailey historian presented to [facility] ED 04/28/18 for leg swelling, he that he felt was than previously. He also noted pain in the LLQ and was brought into ER. The patient was in ED 16:55 04/26/18 as well for abd pain LLQ. Abd pain gradual onset duration 1-2 days. Mild symptoms initially increased to moderate, then diffuse pain. Dullness, nausea. EKG performed in ER and Sinus tach. CT abdomen w/o contrast was completed and he was discharged home. He does not know his PMH, does not know fam/surg/social history. CT scan cholelithiasis, ?thrombophlebitus IVC filter in place. EKG NSR. WBC 9.9, Hgb 11.1, plt 125, sodium 142, K+ 3.9, cl 105, Cr 1.90, glucose 120.0. ESR 25. Glucose was 120. Total bili 3.0. AST 51. Vitals 99, puls 100, rr 20, bp 121/ 70, o2 99%. On toprol XL and zantac. But he is not taking them that he can remember. I asked for a UDS and +opiate. He does not know where that came from. I asked if he used any pain meds and he noted he took a pain pill. I asked about meds like ibuprofen he said no, aleve, he said no. Tylenol, he does not remember. CT reviewed thrombophlebitis of femoral veins, iliac veins and inferior vena cava. IVC filter in place, non obs gas pattern, retroperitoneal edema likely related to phlebitis, cholelithiasis w/o dilatation. He had no c/o RUQ pain, all of his pain was LLQ. Notes reviewed personally and he was d/c from ER without issues to f/u with PCP Dr. Haddad. Weight noted 276 Labs listed as above. Nursing note reviewed and ?constipation with no BM x 3 days. He was d/c home 04/26/18 and returned to ER again today. He lives alone, he is a very poor historian, difficulty obtaining history as his story changes. Myself and nursing x 2 attempted to obtain history and he could not provide a sequential story. Pain comes and goes, leg pain is worse, edema is worse, but weight is unchanged. He has no SOA, talks in full sentences , denied chest pain, vision changes, MCCLENDON, neuro changes, falls, Cough, SOA, PND, Orthopnea. He does not know if he has been urinating less, he had a BM in Er. I asked about intake, he said "good" well "no." He then stated he was drinking more soda He then noted no appetite. I asked multiple times about any c/o urinary issues, denied freq, hesitancy, burning, dysuria, hematuria, stones. He then said he has not had much liquids either as he has not felt like drinking. He is supposed to see Dr. Haddad but has not been there since -2017. He has not taken any of his medications since february. He does not know why. Poor social situation, no rides, no ability to get from place to place. He has no history of Heart failure per his report, I do not have previous records other than Er visit 2 days ago. He reported no history of major CKD. Fam hx heart disease he thinks. He has never been a smoker. Intermittent constipation w/ last BM 30 minutes ago. During history, I laid him flat and he was asymptomatic for about 5 minutes. He noted he could lay like that for hours. No crackles, no heart murmur, no fluid wave in abdomen, no hjr , no visible JVD, skin tenting on chest, dry feet with ashy skin coloration and 2+ Pitting edema to bilateral knees. He stated leg swelling was new but that obvious has been prsent a long time. O2 sat 100% while lying supine w/o oxygen. BP was 119/73 Accucheck on floor was 109. He noted he did not like lying flat after telling me multiple times that he was able to lie supine without issues. He had no isssues breathing but reported it made his head feel funny. He never dropped below 98% on Room air. We sat him up to 45, repeated neck vein evaluation and no jvd on exam. BP increased 125/76. Bp standing 118/ 70. He was aware of day/date/time/year. He was aware of city/[place]/ [place]. Aware of current president, and previous presidents objag, Olivera, marshal, olivera. Very odd situation as he has flat affect with poor history. We wrapped legs in jet wraps, elevated legs. We discussed his status as seeming dehydrated more than fluid overloaded. NT Pro BNP elevated 179. DNR status reviewed and he is full code. Initial eval in Er was for CC of feet/ leg swelling. Previous HTN told ER ?CHF but then noted no history of Echo and no known heart failure. He truly had no idea about his history. 2+ Bilateral LE edema, chronic PVD/Venous stasis. Aching, moderate pain, rates this at 5/10 , uncomfortable. He noted it came on immediately. We asked him on floor if he sat a lot and he said yes. No erythema, no joint pain. ROS reviewed from ER team, no other symptoms. Well appearing, no distress, no resp issues, vitals looked okay. Airway open, 2+ edema bilaterally without murmur/cardiac symptoms JVD/HJR. Labs repeated in ER 04/28/18 and WBC 11.03, up from 9.9, hgb 10.8 down from 11.1, plt 122 now down from 125. Sodium 135.7 down from 142, glucose up to 140, Creatinine up to 2.90 from 2.4. PRO BNP 179 (normal <124). Lipase 146.5. I was called at 19:[address] w/o contrast repeated 04/28/18 showed essentially same findings as seen 2 days prior. Weight issues from ER to floor , they had him at 230 and he is clearly 270's. New CT abd 04/28/18 GB sludge cholelith as described. Recommended US (CAN BE DONE OP). Bilateral femoral veins, iliac and inferior vena cava stable inflammatory stranding suspect thrombophlebitis. Calculated his ideal body weight to be somewhere between 155- 165 based on 70 inches tall man. Overnight there were no complications. We put him on maintenance fluids 110ml/ hour NS through night, placed on tele and checked labs in AM. This am he noted that he felt fine, felt about the same. He was happy with leg wraps and pain was reduced. Weight 274 lb. Still no c/o. He has no SOA, no PND, no orthopnea , no chest pain, no vision changes, no MCCLENDON, reports he felt fine. NO reported urine output beyond 200ml for the night bladder scan of 185ml. TSH returned 0.798, Creatinine has worsened from 2.9 to 3.14. CO2 is fine, BUN is elevated at 42.5. AST/ALT/alkphos okay. Urinalysis showed +Nit, I have sent urine for culture. Tenting on chest was less prominent, mucus membranes were moist. I talked with cardiology this am and went for echo. It was recommended to get ABG , I have ordered that and it was normal other than midlly low CO2. I increased fluid to 125ml/hr as he only had 200ml output since Er evaluation. Goal was if LVEF okay, if contractility was okay, continue to monitor and watch as the creatinine improved. Renal US ordered showing thickening bladder wall. CMP this afternoon showed mild decline in renal function with creatinine to 3.21 and GFR 24. Hyperbilirbuinema was noted and I ordered direct and total. Direct returned at 0. He did not know about this historicallyl. CBC showed a drop in his hgb from 10.8 to 9.5. Echo returned EF 45-50%. Telemetry overnight was SR to ST w/ PVC noted and HR to 130-140 then back to SR. He looked clinically better but labs were not any better. Legs remained wrapped. BNP repeated today and essentially unchanged, PT/INR 1.1. Around shift change today 6-7 he had some [place] started again, I went to check on him again and he was completely asymptomatic staring at TV, will answer questions but vaguely. He has no neuro deficits. Repeat CXR 04/29 8:55 unchanged from prior. No Urine output other than 350ml that was cathed after bladder scan around 1400 today. He has been oliguric to anuric. Initially he appeared dehydrated tenting, dry membranes, not eating/drinking, SG urine 1.025, ashy skin on LE despite the chronic venous stasis. We discussed diuresis, but he has not had any again as he was clinically dry appearing. Last set of vitals 110/73, RR 20, HR 153, 100% RA, 98.3 Temp. NO fever during admit, troponin negative at admit, EKG negative at admit. He has had a few runs of sinus tachy, while lying complete stable, calm in room. No e/o pulmonary edema, Echo as listed. Called for transfer for anuria/oliguria at [address] Hernandez who agreed to transfer. He is being transferred to floor 317 at [facility] in [place]. Fluids increased to 150/ hr this afternoon. He was on lovenox 40 yesterday, changed to 30 today. Plan: 1. Transfer to [facility] 2. >30 minutes spent in coordination of transfer.
--- NOTE | 2018-04-29 21:07 | DI ---
EXAM: PA and lateral views of the chest. HISTORY: Tachycardia. FINDINGS: The bones are unremarkable. The cardiac silhouette and pulmonary vasculature are within no rmal limits. The costophrenic angles are clear. No infiltrate or consolidation. There are calcifie d granulomas. There is eventration of the right hemidiaphragm. Impression: No acute cardiopulmonary disease.
[2018-04-29] MEDS ORDERED: LOVENOX SUBCUT STA (21:12)
[2018-04-29] MEDS ORDERED: LOVENOX ONE (21:15)
[2018-04-29 21:30] VITALS: BP 110/73; TEMP 98.3
[2018-04-30] MEDS ORDERED: TOPROL XL PO SCH (09:00)
[2018-04-30] MEDS ORDERED: LOVENOX SUBCUT SCH (19:40)
--- NOTE | 2018-05-04 13:32 | ECHO2D ---
Date of Exam: 04/29/18 Ordering Physician: DR. MICHELLE TOLEDO--HOSPITALIST Room #: [id number] Reason for Echo: EXTREMITY EDEMA, RENAL FAILURE M-Mode Normal Adult Results LV Dimensions Normal Adult Results AoV Opening excursions >1.6 >1.6 LVEDD-base- 3.5-5.8 5.0 Ao root dimensions 2.0-3.7 3.3 LVESD-base- 3.1-4.6 L. Atrium dimensions 1.9-3.8 4.3 Post. Wall thickness 0.8-1.1 1.2 IV septum (thickness) 0.7-1.2 1.2 Post. Wall excursion 0.72-1.3 NORMAL Septal motion 0.4 Systolic motion R. Ventricular cavity 1.5-2.0 NORMAL LVEF 60% 50% Paradoxical septal wall motion NORMAL 2-D : MILDLY ENLARGED LEFT ATRIAL CAVITY--HYPOKINETIC SEPTUM, NO EFFUSION, NO THROMBUS, NORMAL VALVES M-MODE: MV: NORMAL AV: NORMAL TV: NORMAL PV: CHAMBER SIZE: ENLARGED LEFT ATRIAL CAVITY WALL MOTION: HYPOKINETIC SEPTUM PERICARDIUM: NORMAL INTERPRETATION: 1. BORDERLINE LEFT VENTRICULAR WITH ENLARGED LEFT ATRIAL CAVITY (4.3 CM) 2. NORMAL LEFT VENTRICLE SIZE 3. MILDLY HYPOKINETIC SEPTUM WITH EJECTION FRACTION 45% TO 50% 4. NORMAL VALVES MTDD
== END 2018-04-29 21:26 | disposition short-term general hospital (02) | DRG 556 ==
LOC: ED 12:42 → MEDSURG B 18:50
PROVIDERS: ADMIT Family Medicine; ATTEND Family Medicine
DX: M79.661 Pain in right lower leg (principal); N17.9 Acute kidney failure, unspecified; E87.1 Hypo-osmolality and hyponatremia; E80.6 Other disorders of bilirubin metabolism; E86.0 Dehydration; I73.9 Peripheral vascular disease, unspecified; I10 Essential (primary) hypertension; I87.8 Other specified disorders of veins; N18.9 Chronic kidney disease, unspecified; K80.20 Calculus of gallbladder without cholecystitis without obstruction; R60.0 Localized edema; R10.32 Left lower quadrant pain; Z68.39 Body mass index [BMI] 39.0-39.9, adult; Z95.828 Presence of other vascular implants and grafts; Z78.9 Other specified health status
CPT/HCPCS: 36415; 80053; 80306; 81001; 82140; 82248; 82550; 82553; 82803; 82962; 83010; 83690; 83880; 84443; 84484; 85025; 85610; 87086; 93005; 93010; 96372; 99223; 99239; 99284

== ENCOUNTER 2018-07-06 09:53 | Outpatient (CLI) | payer OTHER | END 2018-07-06 09:54 | disposition home or self-care (01) | LOC: LAB 09:53 | PROVIDERS: ATTEND Family Medicine | DX: E78.5 Hyperlipidemia, unspecified (principal); I25.10 Atherosclerotic heart disease of native coronary artery without angina pectoris; I13.0 Hypertensive heart and chronic kidney disease with heart failure and stage 1 through stage 4 chronic kidney disease, or unspecified chronic kidney disease; N18.3 Chronic kidney disease, stage 3 (moderate); R60.0 Localized edema; G92 Toxic encephalopathy; E66.9 Obesity, unspecified | CPT/HCPCS: 36415; 80053; 80061; 81001; 83880; 85025; 86140 ==